=== PATIENT | female | born 1950 | race Caucasian/White ===

== ENCOUNTER 2018-09-09 10:10 | Inpatient (IN) | payer SELFPAY ==
[~2018-09-09] VITALS: Ht 157.5 cm; Wt 39.5 kg
[2018-09-09] MEDS ORDERED: SODIUM CHLORIDE 0.9% 1000ML BAG (SEPSIS BOLUS) IV ONE (12:00)
[2018-09-09] MEDS ORDERED: LEVOFLOXACIN 750MG PREMIX 150 ML IV ONE (12:00)
[2018-09-09 12:06] LABS: BASOPHILS % 0.8 % (0.0-2.0); EOSINOPHILS % 0.1 % (0.0-5.0); HEMATOCRIT. 38.3 % (36.0-48.0); HEMOGLOBIN. 12.7 g/dL (12.0-16.0); LYMPHOCYTES % 9.9 % (20.0-50.0); MEAN CORPUSCULAR HEMOGLOBIN 30.4 pg (28.0-32.0); MEAN CORPUSCULAR VOLUME 91.5 fL (81.0-99.0); MEAN PLATELET VOLUME 6.8 fl (7.4-10.4); MONOCYTES % 6.7 % (2.0-8.0); NEUTROPHILS % 82.5 % (40.0-76.0); PLATELET 340 x1000/uL (130-400); RED BLOOD CELL COUNT 4.19 mill/uL (4.2-5.4); RED CELL DISTRIBUTION WIDTH 15.5 % (11.6-14.6)
[2018-09-09 12:12] LABS: CHLORIDE 97 mEq/L (98-107)
[2018-09-09 12:14] LABS: INR 1.1; PARTIAL THROMBOPLASTIN TIME 34.6 sec (23.4-31.0)
[2018-09-09 12:49] LABS: CLARITY URINE CLOUDY (CLEAR); COLOR URINE YELLOW (YELLOW); KETONES URINE NEGATIVE (NEGATIVE); LEUKOCYTE ESTERASE URINE TRACE (NEGATIVE); NITRITE URINE NEGATIVE (NEGATIVE); OCCULT BLOOD URINE NEGATIVE (NEGATIVE); PROTEIN URINE NEGATIVE (NEGATIVE); SPECIFIC GRAVITY URINE 1.018 (1.005-1.030); UROBILINOGEN URINE 0.2 E.U./dL (0.2-1.0)
[2018-09-09 16:50] VITALS: BP 107/62
[2018-09-09] MEDS ORDERED: PNEUMOCOCCAL 23-VAL P-SAC VAC 0.5 ML IM ONE (18:00)
[2018-09-09] MEDS ORDERED: INFLUENZA VIRUS VACCINE(AFLURIA) 0.5ML SYR IM ONE (18:00)
[2018-09-09 20:00] VITALS: BP 94/44
[2018-09-09] MEDS ORDERED: DOCUSATE SODIUM 100MG CAPSULE PO PRN (20:15)
[2018-09-09] MEDS ORDERED: DIPHENHYDRAMINE 50MG/ML VIAL IV PRN (20:15)
[2018-09-09] MEDS ORDERED: MAGNESIUM/ALUMINUM HYDROXIDE/SIMETHICONE 30ML UDC PO PRN (20:15)
[2018-09-09] MEDS ORDERED: IPRATROPIUM/ALBUTEROL 0.5-3(2.5)MG/3ML NEB INH PRN (20:15)
[2018-09-09] MEDS ORDERED: LORAZEPAM 2MG/ML CPJ IV PRN (20:15)
[2018-09-09] MEDS ORDERED: HYDROMORPHONE HCL/PF 2MG/ML CPJ IV PRN (20:15)
[2018-09-09] MEDS ORDERED: ACETAMINOPHEN 325MG TABLET PO PRN (20:15)
[2018-09-09] MEDS ORDERED: HYDRALAZINE 20MG/ML VIAL IV PRN (20:15)
[2018-09-09] MEDS ORDERED: GUAIFENESIN 200MG/10ML SUGAR FREE UDC PO PRN (20:15)
[2018-09-09] MEDS ORDERED: CLONIDINE 0.1MG TABLET PO PRN (20:15)
[2018-09-09] MEDS ORDERED: LEVOFLOXACIN 500MG PREMIX 100 ML IV SCH (20:15)
[2018-09-09] MEDS ORDERED: NA PHOS,M-B/NA PHOS,DI-BA ENEMA 118ML PR PRN (20:15)
[2018-09-09] MEDS ORDERED: HYDROCODONE/ACETAMINOPHEN 5/325MG TABLET PO PRN (20:15)
[2018-09-09] MEDS ORDERED: ONDANSETRON HCL 4MG/2ML INJ IV PRN (20:15)
[2018-09-09] MEDS ORDERED: ENOXAPARIN 40MG/0.4ML SYR SUBCUT SCH (21:00)
[2018-09-09] MEDS: SODIUM CHLORIDE 0.9% INJ 3ML FLUSH IVF SCH (21:22)
[2018-09-10] VITALS: BP 101/55
[2018-09-10 00:06] LABS: CREATINE KINASE 56 IU/L (26-192)
[2018-09-10 00:07] LABS: CREATINE KINASE MB FRACTION 1.6 ng/mL (0.5-3.6)
[2018-09-10] MEDS: IPRATROPIUM/ALBUTEROL 0.5-3(2.5)MG/3ML NEB INH SCH ×4 (00:53→21:12)
[2018-09-10 04:00] VITALS: BP 99/53
[2018-09-10] MEDS: SODIUM CHLORIDE 0.9% INJ 3ML FLUSH IVF SCH ×3 (05:44→23:15)
[2018-09-10 07:13] LABS: BASOPHILS % 0.3 % (0.0-2.0); EOSINOPHILS % 0.1 % (0.0-5.0); LYMPHOCYTES % 9.4 % (20.0-50.0); MEAN CORPUSCULAR HEMOGLOBIN 30.6 pg (28.0-32.0); MEAN CORPUSCULAR VOLUME 91.9 fL (81.0-99.0); MEAN PLATELET VOLUME 7.2 fl (7.4-10.4); MONOCYTES % 8.2 % (2.0-8.0); PLATELET 297 x1000/uL (130-400); RED BLOOD CELL COUNT 3.59 mill/uL (4.2-5.4); RED CELL DISTRIBUTION WIDTH 15.4 % (11.6-14.6)
[2018-09-10 08:00] VITALS: BP 93/51
[2018-09-10 08:08] LABS: CHLORIDE 102 mEq/L (98-107)
[2018-09-10 08:36] LABS: CREATINE KINASE 55 IU/L (26-192)
[2018-09-10 08:38] LABS: CREATINE KINASE MB FRACTION 1.4 ng/mL (0.5-3.6)
[2018-09-10 12:00] VITALS: BP 100/58
[2018-09-10] MEDS: LEVOFLOXACIN 250MG PREMIX 50 ML IV SCH (12:00)
[2018-09-10 16:00] VITALS: BP 168/56
[2018-09-10 20:00] VITALS: BP 97/56
[2018-09-11] VITALS: BP 97/48
[2018-09-11] MEDS: IPRATROPIUM/ALBUTEROL 0.5-3(2.5)MG/3ML NEB INH SCH ×4 (02:31→21:06)
[2018-09-11 04:00] VITALS: BP 101/57
[2018-09-11] MEDS: SODIUM CHLORIDE 0.9% INJ 3ML FLUSH IVF SCH ×3 (06:00→22:38)
[2018-09-11 08:00] VITALS: BP 101/53
[2018-09-11 12:00] VITALS: BP 105/55
[2018-09-11] MEDS ORDERED: SODIUM BICARBONATE 4% (2.4MEQ) 5ML VIAL IV ONE (13:02)
[2018-09-11 16:00] VITALS: BP 101/51
[2018-09-11] MEDS: LEVOFLOXACIN 250MG PREMIX 50 ML IV SCH (16:34)
[2018-09-11 20:00] VITALS: BP 102/55
[2018-09-12] VITALS (7 sets, daily range): BP systolic 95–112; BP diastolic 48–59
[2018-09-12] MEDS: IPRATROPIUM/ALBUTEROL 0.5-3(2.5)MG/3ML NEB INH SCH ×3 (02:14→14:22)
[2018-09-12] MEDS: SODIUM CHLORIDE 0.9% INJ 3ML FLUSH IVF SCH (06:41)
[2018-09-12] MEDS: LEVOFLOXACIN 250MG PREMIX 50 ML IV SCH (12:56)
[2018-09-12] MEDS ORDERED: ENOXAPARIN 30MG/0.3ML SYR SUBCUT SCH (15:30)
== END 2018-09-12 17:30 | disposition home or self-care (01) | DRG 136 ==
LOC: ER 10:10 → EDBEDREQ 11:54 → 8WST 13:25 → UNDOADMIN 13:25 → EDBEDREQ 13:27 → ENRESERV 14:00 → UNDODISIN 18:25
PROVIDERS: ADMIT Internal Medicine; ATTEND Internal Medicine
PROC: 0W993ZZ Drainage of Right Pleural Cavity, Percutaneous Approach (ICD-10-PCS; principal; 2018-09-11)
DX: C34.90 Malignant neoplasm of unspecified part of unspecified bronchus or lung (principal); J96.00 Acute respiratory failure, unspecified whether with hypoxia or hypercapnia; E43 Unspecified severe protein-calorie malnutrition; J91.0 Malignant pleural effusion; K59.00 Constipation, unspecified; Z98.49 Cataract extraction status, unspecified eye; Z68.1 Body mass index [BMI] 19.9 or less, adult
CPT/HCPCS: 32555; 36415; 71045; 82550; 82553; 83605; 84145; 84484; 90686; 90732; 93005; 93970; 94640; 96365; 99285; J1650; J1956; J3490; J7030; J7050; J7620

== ENCOUNTER 2018-09-20 09:31 | Inpatient (IN) | payer MEDICARE, MEDICAID ==
[~2018-09-20] VITALS: Ht 157.5 cm; Wt 33.6 kg
[2018-09-20] MEDS ORDERED: SODIUM CHLORIDE 0.9% 1,000 ML IV ONE (10:29)
[2018-09-20 10:51] LABS: HEMATOCRIT. 36.1 % (36.0-48.0); HEMOGLOBIN. 12.2 g/dL (12.0-16.0); MEAN CORPUSCULAR HEMOGLOBIN 31.3 pg (28.0-32.0); MEAN PLATELET VOLUME 6.8 fl (7.4-10.4); PLATELET 292 x1000/uL (130-400); RED BLOOD CELL COUNT 3.89 mill/uL (4.2-5.4); RED CELL DISTRIBUTION WIDTH 15.8 % (11.6-14.6)
[2018-09-20 10:59] LABS: INR 1.1; PROTHROMBIN TIME 11.4 sec (9.6-11.0)
[2018-09-20 11:12] LABS: CHLORIDE 99 mEq/L (98-107)
[2018-09-20 11:24] LABS: PLATELET ESTIMATE NORMAL
[2018-09-20] MEDS ORDERED: GLUCAGON,HUMAN RECOMBINANT 1MG/VIAL IV ONE (12:15)
[2018-09-20] MEDS ORDERED: AZITHROMYCIN 500 MG in DEXT 5% WATER 250 ML IV SCH (12:15)
[2018-09-20] MEDS ORDERED: CEFTRIAXONE 1 G PREMIX 50 ML IV ONE (12:15)
[2018-09-20] MEDS ORDERED: HYDROMORPHONE HCL/PF 2MG/ML CPJ IV PRN (13:45)
[2018-09-20] MEDS ORDERED: ENOXAPARIN 40MG/0.4ML SYR SUBCUT SCH (13:45)
[2018-09-20] MEDS ORDERED: ONDANSETRON HCL 4MG/2ML INJ IV PRN (13:45)
[2018-09-20] MEDS ORDERED: IPRATROPIUM/ALBUTEROL 0.5-3(2.5)MG/3ML NEB HHN PRN (14:45)
[2018-09-20 15:44] VITALS: BP 116/60
[2018-09-20] MEDS: DEXT 5%/0.45% NACL 1000ML 1,000 ML IV SCH (15:57)
[2018-09-20 16:00] VITALS: BP 139/78
[2018-09-20] MEDS: ENOXAPARIN 30MG/0.3ML SYR SUBCUT SCH (16:15)
[2018-09-20 16:28] LABS: BG BASE EXCESS 1.8 mmol/L (-2.0-2.0); BG CARBOXYHEMOGLOBIN 1.1 % (0.5-1.5); BG DEOXYHEMOGLOBIN 5.9 % (0.0-5.0); BG HCO3 ACT 26.6 mmol/L (22.0-26.0); BG METHEMOGLOBIN 0.2 % (0.0-1.5); BG OXYHEMOGLOBIN 92.8 % (94.0-97.0); BG PCO2 42.5 mmHg (35.0-45.0); BG PH 7.415 (7.350-7.450); BG PO2 71.8 mmHg (75.0-100.0); BG SAMPLE SITE RIGHT BRACHIAL; BG TOTAL HEMOGLOBIN 12.6 g/dL (12.0-18.0); BG VENT MODE ROOM AIR
[2018-09-20] MEDS ORDERED: LIDOCAINE HCL/PF 1% 10 MG/ML 5ML VIAL ONE (17:25)
[2018-09-20] MEDS ORDERED: PROPOFOL 200MG/20ML VIAL IV ONE (17:25)
[2018-09-20 20:00] VITALS: BP 102/50
[2018-09-21] VITALS: BP 148/66
[2018-09-21 04:00] VITALS: BP 103/52
[2018-09-21] MEDS: DEXT 5%/0.45% NACL 1000ML 1,000 ML IV SCH ×2 (05:49→21:59)
[2018-09-21 07:38] LABS: BASOPHILS % 0.5 % (0.0-2.0); EOSINOPHILS % 0.8 % (0.0-5.0); HEMATOCRIT. 35.1 % (36.0-48.0); HEMOGLOBIN. 11.7 g/dL (12.0-16.0); LYMPHOCYTES % 9.8 % (20.0-50.0); MEAN CORPUSCULAR HEMOGLOBIN 31.3 pg (28.0-32.0); MEAN CORPUSCULAR VOLUME 93.7 fL (81.0-99.0); MEAN PLATELET VOLUME 7.2 fl (7.4-10.4); MONOCYTES % 9.4 % (2.0-8.0); NEUTROPHILS % 79.5 % (40.0-76.0); PLATELET 285 x1000/uL (130-400); RED BLOOD CELL COUNT 3.75 mill/uL (4.2-5.4); RED CELL DISTRIBUTION WIDTH 15.9 % (11.6-14.6)
[2018-09-21 07:45] LABS: CHLORIDE 101 mEq/L (98-107)
[2018-09-21 08:00] VITALS: BP 117/58
[2018-09-21 12:00] VITALS: BP 116/59
[2018-09-21] MEDS: ENOXAPARIN 30MG/0.3ML SYR SUBCUT SCH (15:49)
[2018-09-21 16:00] VITALS: BP 119/67
[2018-09-21 20:00] VITALS: BP 111/65
[2018-09-22] VITALS: BP 121/74
[2018-09-22 04:00] VITALS: BP 125/57
[2018-09-22 08:00] VITALS: BP 123/46
[2018-09-22 12:00] VITALS: BP 117/62
[2018-09-22 16:00] VITALS: BP 108/61
[2018-09-22] MEDS: DEXT 5%/0.45% NACL 1000ML 1,000 ML IV SCH (16:56)
[2018-09-22] MEDS: ENOXAPARIN 30MG/0.3ML SYR SUBCUT SCH (16:56)
[2018-09-22 20:00] VITALS: BP 118/60
[2018-09-22] MEDS: GUAIFENESIN 600MG ER TABLET PO SCH (21:06)
[2018-09-23] VITALS: BP 118/70
[2018-09-23 04:00] VITALS: BP 119/57
[2018-09-23 08:00] VITALS: BP 103/57
[2018-09-23] MEDS: DEXT 5%/0.45% NACL 1000ML 1,000 ML IV SCH (10:07)
[2018-09-23] MEDS: GUAIFENESIN 600MG ER TABLET PO SCH (10:07)
[2018-09-23 12:00] VITALS: BP 116/65
[2018-09-23 13:31] VITALS: BP 116/65
[2018-09-23 18:28] VITALS: BP 116/65
== END 2018-09-23 15:23 | disposition home or self-care (01) | DRG 136 ==
LOC: ER 09:31 → 8WST 13:15 → EDBEDREQ 13:19 → ENRESERV 13:23 → SUPCPDRO 13:41
PROVIDERS: ADMIT Hospitalist; ATTEND Hospitalist
PROC: 0DB58ZX Excision of Esophagus, Via Natural or Artificial Opening Endoscopic, Diagnostic (ICD-10-PCS; principal; 2018-09-20)
PROC: 0DB68ZX Excision of Stomach, Via Natural or Artificial Opening Endoscopic, Diagnostic (ICD-10-PCS; 2018-09-20)
DX: C34.90 Malignant neoplasm of unspecified part of unspecified bronchus or lung (principal); J96.20 Acute and chronic respiratory failure, unspecified whether with hypoxia or hypercapnia; R64 Cachexia; K22.2 Esophageal obstruction; T18.198A Other foreign object in esophagus causing other injury, initial encounter; K59.09 Other constipation; X58.XXXA Exposure to other specified factors, initial encounter; Y93.89 Activity, other specified; Z92.21 Personal history of antineoplastic chemotherapy; Y92.89 Other specified places as the place of occurrence of the external cause; Y99.8 Other external cause status; Z68.1 Body mass index [BMI] 19.9 or less, adult
CPT/HCPCS: 36415; 36600; 71045; 82375; 82805; 83605; 83880; 84484; 88305; 88312; 88313; 92610; 93005; 94640; 96374; 99285; J0456; J0696; J1610; J1650; J2704; J3490; J7030; J7060